=== PATIENT | male | born 1935 | race Caucasian/White ===

== ENCOUNTER 2019-07-22 10:55 | Inpatient (IN) | payer MEDICARE ==
[2019-07-22] VITALS (12 sets, daily range): BP systolic 96–137
[~2019-07-22] VITALS: Ht 185.4 cm; Wt 126.6 kg
--- NOTE | 2019-07-22 10:55 | NUR ---
BROUGHT IN BY [facility], PLACED IN BED #1 AND TRIAGED. REPORT GIVEN TO MANDY.
--- NOTE | 2019-07-22 11:00 | NUR ---
Pt bib LACF from home c/o generalized weakness. Pt h/o Afib, CHF,HTN
--- NOTE | 2019-07-22 11:02 | NUR ---
Random blood glucose checked, 86 mg/dL. Notified .
--- NOTE | 2019-07-22 11:15 | NUR ---
Pt has 20G LAC placed by [facility]. IVF infusing.
[2019-07-22 11:16] LABS: HEMATOCRIT 34.6 % (36-54); HEMOGLOBIN 11.1 g/dL (14.0-18.0); MEAN CORPUSCULAR HEMOGLOBIN 29 pg (27-31); MEAN CORPUSCULAR HGB CONC 32 % (32-36); MEAN CORPUSCULAR VOLUME 91 fL (79.0-98.0); PLATELET COUNT (AUTO) 135 K/uL (130-430); RED BLOOD CELL COUNT(AUTO) 3.81 MIL/uL (4.2-6.2)
[2019-07-22 11:26] LABS: BILIRUBIN,URINE NEGATIVE (NEGATIVE); BLOOD, URINE 2+ (NEGATIVE); CLARITY/URINE CLEAR (CLEAR); COLOR,URINE YELLOW (YELLOW); GLUCOSE,URINE NEGATIVE (NEGATIVE); KETONES,URINE NEGATIVE (NEGATIVE); LEUKOCYTE ESTERASE ,URINE 1+ (NEGATIVE); NITRITE, URINE POSITIVE (NEGATIVE); PROTEIN URINE 1+ (NEGATIVE); UROBILINOGEN,URINE 0.2 (0.2-1.0)
[2019-07-22 11:30] LABS: ALANINE AMINOTRANSFERASE 27 U/L (12-78); ANION GAP 14 (5-15); ASPARTATE AMINOTRANSFERASE 114 U/L (10-37); CALCIUM 8.4 mg/dL (8.4-11.0); CHLORIDE 105 mmol/L (98-107); CREATININE 3.02 mg/dL (0.55-1.30); GLUCOSE 95 mg/dL (70-99); SODIUM SERUM 139 mmol/L (136-145); TOTAL BILIRUBIN 0.5 mg/dL (0.0-1.0); UREA NITROGEN, BLOOD 73 mg/dL (8-21)
[2019-07-22 11:34] LABS: INR 3.7 (0.80-1.20); PROTHROMBIN TIME 36.8 SECS (9.5-12.5)
[2019-07-22 11:34] LABS: BACTERIA,URINE MODERATE /HPF (None Seen)
[2019-07-22 11:35] LABS: HYALINE CASTS, URINE 0-10 /LPF (None Seen)
[2019-07-22 11:35] LABS: POTASSIUM 5.8 mmol/L (3.5-5.1)
[2019-07-22] MEDS ORDERED: VANCOMYCIN HCL 1,000 MG in NS 250 ML IV ONE (11:45)
[2019-07-22] MEDS ORDERED: SODIUM POLYSTYRENE SULFONATE 15 GM/60 ML UDBTL PO ONE (11:45)
[2019-07-22] MEDS ORDERED: DEXTROSE 50% JECT 50 ML DISP.SYRIN IVP ONE (11:45)
[2019-07-22] MEDS ORDERED: PIPERACILLIN/TAZO 3.375 GM in NS 50 ML IV ONE (11:45)
[2019-07-22] MEDS ORDERED: AMIODARONE HCL 150 MG in D5W 97 ML IV ONE (11:45)
[2019-07-22] MEDS ORDERED: NACL 0.9% 2,000 ML IV ONE (11:45)
[2019-07-22] MEDS ORDERED: INSULIN REGULAR, HUMAN 10 UNITS/0.1 ML INJ IVP ONE (11:45)
[2019-07-22 11:48] LABS: BAND % (MANUAL) 26 % (0-6)
[2019-07-22 11:49] LABS: BASOPHILS % (MANUAL) 0 % (0-2); EOSINOPHILS % (MANUAL) 0 % (0-7); LYMPHOCYTES % (MANUAL) 1 % (20-46); METAMYELOCYTES % 1 % (0-0); MONOCYTES % (MANUAL) 2 % (0-11)
--- NOTE | 2019-07-22 12:00 | NUR ---
Pt tolerated straight cath approx 120cc urine sent to lab.
[2019-07-22] MEDS ORDERED: AMIODARONE HCL 150 MG/3ML VIAL ONE (12:31)
[2019-07-22] MEDS ORDERED: PIPERACILLIN/TAZOBACTAM 3.375 GM/VIAL (ZOSYN) IV ONE (12:32)
[2019-07-22] MEDS ORDERED: VANCOMYCIN HCL 1000 MG/VIAL IV ONE (12:42)
[2019-07-22] MEDS ORDERED: NACL 0.9% 1,000 ML IV ONE (13:00)
--- NOTE | 2019-07-22 13:15 | NUR ---
Pt tolerated medication for hyperkalemia.
[2019-07-22] MEDS ORDERED: NACL 0.9% 1,000 ML IV SCH (13:29)
[2019-07-22] MEDS ORDERED: MAGNESIUM SULFATE 50 ML IV PRN (14:00)
[2019-07-22] MEDS ORDERED: LORazepam 2 MG/ML VIAL IVP PRN (14:00)
[2019-07-22] MEDS ORDERED: DOCUSATE SODIUM 100 MG CAPSULE PO PRN (14:00)
[2019-07-22] MEDS ORDERED: ACETAMINOPHEN 325 MG TABLET PO PRN (14:00)
[2019-07-22] MEDS ORDERED: ZOLPIDEM TARTRATE 5 MG TABLET PO PRN (14:00)
[2019-07-22] MEDS ORDERED: MUPIROCIN 2% TOPICAL OINTMENT 22 GM NS PRN (14:00)
[2019-07-22] MEDS ORDERED: ONDANSETRON HCL 4 MG/2 ML VIAL IVP PRN (14:00)
[2019-07-22] MEDS ORDERED: MORPHINE 2 MG/ML INJ. SYRINGE IVP PRN (14:00)
--- NOTE | 2019-07-22 14:00 | NUR ---
Patient will be admitted to care of Dr. Bob. Admitted to ICU unit. Will go to room 6. Summary report printed. Report will be given at bedside.
--- NOTE | 2019-07-22 14:10 | NUR ---
RN NOTES: ADMISSION PATIENT CAME IN FROM ER VIA GURNEY, AWAKE AND ALERT, NOT IN ACUTE DISTRESS. A. FIB. ON THE MANUFACTURING HELPER, INITIAL VITAL SIGNS CHECKED AND RECORDED. IVF: NORMAL SALINE INFUSING WIDE OPEN VIA RIGHT AC IV LOCK. PATIENT MADE COMFORTABLE. WILL CONTINUE TO MONITOR. REPORT GIVEN TO ANTON FITZPATRICK ([id number])
--- NOTE | 2019-07-22 14:20 | NUR ---
OPENING NOTE: RECEIVED REPORT FROM FILIBERTO WALTON. PATIENT IS LAYING IN BED, VERBALLY RESPONSIVE WITH CLEAR SPEECH, ABLE TO OPEN EYES SPONTANEOUSLY. PATIENT IS ON ROOM AIR AND SATURATING WNL. NO ACUTE SIGNS OF RESP DISTRESS, NO SOB. BREATHING EVEN AND UNLABORED. IV SITE INTACT AND PATENT, NO REDNESS/SWELLING TO SITE. ORIENTED PATIENT TO ROOM, BED AN CALL LIGHT. SAFETY PRECAUTIONS IMPLEMENTED. CONTINUE TO MONITOR.
[2019-07-22] MEDS ORDERED: VANCOMYCIN HCL 2,000 MG in NS 500 ML IV ONE (15:00)
[2019-07-22] MEDS: SODIUM BICARBONATE 8.4% JECT 100 MEQ in 0.45% NACL 1,000 ML IV SCH (15:15)
--- NOTE | 2019-07-22 15:41 | NUR ---
Consult called to Dr. Marie. Spoke with Ely
--- NOTE | 2019-07-22 15:44 | NUR ---
Consult called to Dr. Wen. spoke with Linda.
--- NOTE | 2019-07-22 17:00 | NUR ---
PICC LINE INSERTED: PICC LINE INSERTED BY PICC LINE NURSE. PATIENT TOLERATED WELL. XRAY CONFIRMED, OKAY TO USE PICC LINE PER MD ORDERS.
[2019-07-22] MEDS: PIPERACILLIN/TAZO 2.25G/DEX-IS 50 ML IV SCH (18:39)
[2019-07-22 19:03] LABS: ANION GAP 11 (5-15); CHLORIDE 114 mmol/L (98-107); CREATININE 1.97 mg/dL (0.55-1.30); GLUCOSE 80 mg/dL (70-99); POTASSIUM 3.6 mmol/L (3.5-5.1); SODIUM SERUM 145 mmol/L (136-145); UREA NITROGEN, BLOOD 60 mg/dL (8-21)
--- NOTE | 2019-07-22 19:10 | NUR ---
ENDORSED: ENDORSED PLAN OF CARE TO NOC RN. ALL QUESTIONS ANSWERED.
[2019-07-22 19:14] LABS: CALCIUM 6.6 mg/dL (8.4-11.0)
--- NOTE | 2019-07-22 19:45 | NUR ---
Opening Note Pt in bed AAO. A-fib on the monitor, controlled. Pt is on RA. No s/s of distress noted. Pt VSS. YENNY PICC Line and RAC 20g in place. IV sites C/D/I. Bicarb and IV ABx running. No s/s of infiltration noted. Pt has andrews catheter in and flexiseal in place. Erythema and discoloration noted bilaterally to lower legs. Q2H skin turns in place. Bed locked in lowest position, safety precautions in place, and call light in reach, Will continue to monitor.
[2019-07-22] MEDS: CALCIUM CARBONATE 500 MG/ TAB.CHEW PO SCH (21:33)
[2019-07-22 22:24] LABS: BARBITURATE, URINE NEGATIVE (NEG <=200); BENZODIAZEPINE, URINE NEGATIVE (NEG <=150); CANNABINOID, URINE NEGATIVE (NEG <=50); COCAINE, URINE NEGATIVE (NEG <=150); METHAMPHETAMINES SCREEN,URINE NEGATIVE (NEG <=500); OPIATE, URINE POSITIVE (NEG <=100); PHENCYCLIDINE SCREEN,URINE NEGATIVE (NEG <=25); UR TRICYCLIC ANTIDEPRESSANTS NEGATIVE (NEG <=300); URINE AMPHETAMINE NEGATIVE (NEG <=500); URINE METHADONE NEGATIVE (NEG <=200); URINE OXYCODONE SCREEN NEGATIVE (NEG <=100); URINE PROPOXYPHENE SCREEN NEGATIVE (NEG <=300)
--- NOTE | 2019-07-22 22:25 | NUR ---
MD NI Called Dr. Campbell's exchange for critical lab results [phone] Spoke to Kelly
--- NOTE | 2019-07-22 22:35 | NUR ---
Called Spoke w/ Dr. Campbell regarding Pt blood culture results. Orders received. Will carry out as ordered.
[2019-07-23] VITALS (24 sets, daily range): BP systolic 101–131
[2019-07-23] MEDS: PIPERACILLIN/TAZO 2.25G/DEX-IS 50 ML IV SCH ×5 (00:13→23:58)
--- NOTE | 2019-07-23 00:52 | NUR ---
RN Rounds Pt in bed asleep. No s/s of distress noted. VSS. Will continue to monitor.
--- NOTE | 2019-07-23 02:00 | NUR ---
Pt HR went uncontrolled a-fib with HR in the 100s around 0130. PVCs now noted. Pt denies any pain or discomfort, remains asymptomatic. Will continue to monitor.
--- NOTE | 2019-07-23 04:15 | NUR ---
RN Rounds Pt in bed asleep. No s/s of distress noted. Pt still remains uncontrolled A-fib with HR in the 100-110s w/ PVCs noted. Pt is asymptomatic, and denies any pain or discomfort. Will continue to monitor.
[2019-07-23 05:52] LABS: HEMATOCRIT 26.9 % (36-54); LYMPHOCYTES # (AUTO) 0.5 K/uL (1.0-5.5); LYMPHOCYTES % (AUTO) 3.3 % (20.5-51.5); MEAN CORPUSCULAR HEMOGLOBIN 30 pg (27-31); MEAN CORPUSCULAR HGB CONC 33 % (32-36); MEAN CORPUSCULAR VOLUME 88 fL (79.0-98.0); MONOCYTES # (AUTO) 0.7 K/uL (0.0-1.0); MONOCYTES % (AUTO) 4.5 % (1.7-9.3); NEUTROPHILS # (AUTO) 13.3 K/uL (1.8-7.7); NEUTROPHILS % (AUTO) 92.2 % (40.0-70.0); PLATELET COUNT (AUTO) 92 K/uL (130-430); RED BLOOD CELL COUNT(AUTO) 3.04 MIL/uL (4.2-6.2); RED CELL DISTRIBUTION WIDTH 15.6 % (9.0-15.0); WHITE BLOOD COUNT (AUTO) 14.4 K/uL (4.8-10.8)
[2019-07-23 06:02] LABS: ANION GAP 6 (5-15); CHLORIDE 109 mmol/L (98-107); CREATININE 1.82 mg/dL (0.55-1.30); GLUCOSE 78 mg/dL (70-99); POTASSIUM 3.1 mmol/L (3.5-5.1); PROTHROMBIN TIME 49.1 SECS (9.5-12.5); SODIUM SERUM 144 mmol/L (136-145); UREA NITROGEN, BLOOD 61 mg/dL (8-21)
--- NOTE | 2019-07-23 06:12 | NUR ---
Closing Note Pt in bed, asleep. No s/s of distress noted. Pt remains a-fib on the monitor, with PVCs noted. Pt is asymptomatic, no s/s of distress, Pt denies any pain. Pt on RA, even and unlabored breathing noted. Pt has YENNY PICC line running IVF. No s/s of infiltration noted. Pt has andrews catheter in place, draining urine to gravity. Flexiseal in place, no leakage noted. Bed locked in lowest position, call light in reach, and safety precautions in place. Will endorse to oncoming shift.
[2019-07-23] MEDS: SODIUM BICARBONATE 8.4% JECT 100 MEQ in 0.45% NACL 1,000 ML IV SCH (06:22)
[2019-07-23 06:46] LABS: VANCOMYCIN,RANDOM 7.3 ug/mL
[2019-07-23] MEDS ORDERED: CALCIUM CHLORIDE 1 GM in NS 100 ML IV ONE (07:00)
[2019-07-23] MEDS ORDERED: PHYTONADIONE Non-Formulary 5 MG TABLET PO ONE (07:00)
--- NOTE | 2019-07-23 07:10 | NUR ---
Endorsement Report given to oncoming RN at bedside via SBAR approach.
--- NOTE | 2019-07-23 07:10 | NUR ---
Endorsement Received shift report from night RN using SBAR
[2019-07-23] MEDS ORDERED: PHYTONADIONE (Vitamin K) Oral Solution PO ONE (07:30)
--- NOTE | 2019-07-23 08:00 | NUR ---
AM assessment Pt tachy at 102 HR, 19 RR, O2 96%, 109/43. Pt is complaining of lower leg pain. PT is NPO pending CT scan with contrast. Bed lock and in lowest position with call light in reach and personal cell phone.
--- NOTE | 2019-07-23 08:30 | NUR ---
Radiology ultrasound is being performed on PT.
[2019-07-23] MEDS ORDERED: DIATR MEGLU/DIATRIZ SOD 30 ML SOLUTION PO ONE (09:00)
[2019-07-23] MEDS: CALCIUM CARBONATE 500 MG/ TAB.CHEW PO SCH ×4 (09:01→20:29)
--- NOTE | 2019-07-23 09:15 | NUR ---
Obtained consent for CT with contrast. Kristie from radiology informed consent is not needed. Administering oral CT contrast.
--- NOTE | 2019-07-23 09:39 | NUR ---
Nutrition Update Glenn Scale 13 noted. Pt admitted for arrhythmia, irregular heart beats, sepsis Diet: Regular BMI: 36.9 kg/m2 RD to follow per nutrition care standards.
[2019-07-23] MEDS: EMOLLIENT COMBINATION NO.73 78 GM CREAM..G. TP SCH ×2 (10:01→20:29)
[2019-07-23] MEDS: MORPHINE 2 MG/ML INJ. SYRINGE IVP PRN ×2 (10:19→23:02)
--- NOTE | 2019-07-23 10:20 | NUR ---
Pt complaining of lower leg pain. 6 out of 10. Administered 1 mg of Morphine IVP.
--- NOTE | 2019-07-23 11:15 | NUR ---
Pain assessment 1 out of 10. Pt resting comfortably with lights turned off.
[2019-07-23] MEDS: VANCOMYCIN HCL 1,500 MG in NS 250 ML IV SCH (11:47)
--- NOTE | 2019-07-23 13:45 | NUR ---
Pt family at bedside
--- NOTE | 2019-07-23 14:24 | NUR ---
Dietitian Recommendations 1. Recommend change to Cardiac, Renal diet Please see Nutrition Assessment for further details. LT, RD
--- NOTE | 2019-07-23 17:25 | NUR ---
Dr Steen called for home medication reconciliation list. Called PT son Arturo and he said he will bring it in tonight or tomorrow.
--- NOTE | 2019-07-23 19:10 | NUR ---
Shift Endorsement Hand off report given to night RN using SBAR.
--- NOTE | 2019-07-23 19:15 | NUR ---
Closing notes Pt on room air, finished dinner. Pt displaying Afib. Pt does not express signs of distress or pain. Bed locked in lowest position with room light on. Call light in reach with Pt cellphone in hand.
--- NOTE | 2019-07-23 19:35 | NUR ---
Opening Note Pt in bed AAO. A-fib on the monitor, controlled. Pt is on RA. No s/s of distress noted. Pt VSS. YENNY PICC Line and RAC 20g in place. IV sites C/D/I. No s/s of infiltration noted. Pt has andrews catheter in and flexiseal in place. Erythema and discoloration noted bilaterally to lower legs. Q2H skin turns in place. Bed locked in lowest position, safety precautions in place, and call light in reach, Will continue to monitor.
[2019-07-23] MEDS ORDERED: amLODIPine BESYLATE 5 MG TABLET PO ONE (21:15)
[2019-07-23] MEDS ORDERED: LIP40 PO (22:22)
[2019-07-23] MEDS ORDERED: HYT1 PO (22:22)
[2019-07-23] MEDS ORDERED: XALEYE LEFT EYE (22:22)
[2019-07-23] MEDS ORDERED: DORZ10DR10 LEFT EYE (22:22)
[2019-07-23] MEDS ORDERED: FURO-149 PO (22:22)
[2019-07-23] MEDS ORDERED: WARF2.5T2 PO (22:22)
[2019-07-23] MEDS ORDERED: LISI-600 PO (22:22)
[2019-07-23] MEDS ORDERED: NOR10 PO (22:22)
[2019-07-23] MEDS ORDERED: HYDR-3607 PO (22:22)
[2019-07-23] MEDS ORDERED: COR6.25 PO (22:22)
[2019-07-23] MEDS ORDERED: BRI.2% LEFT EYE (22:22)
[2019-07-24] VITALS (24 sets, daily range): BP systolic 85–142
--- NOTE | 2019-07-24 00:35 | NUR ---
RN Rounds Pt in bed asleep. No s/s of distress noted. VSS. Will continue to monitor.
--- NOTE | 2019-07-24 03:15 | NUR ---
RN Rounds Pt in bed asleep. No s/s of distress noted. Pt remains in A-fib, w/ occasional PVCs noted. Pt denies any chest pain, SOB, or discomfort. Will continue to monitor.
[2019-07-24] MEDS: PIPERACILLIN/TAZO 2.25G/DEX-IS 50 ML IV SCH ×4 (05:25→23:00)
[2019-07-24 05:51] LABS: BASOPHILS % (AUTO) 0.1 % (0.0-2.0); EOSINOPHILS % (AUTO) 0.3 % (0.0-4.0); HEMATOCRIT 27.9 % (36-54); HEMOGLOBIN 9.2 g/dL (14.0-18.0); LYMPHOCYTES # (AUTO) 0.6 K/uL (1.0-5.5); LYMPHOCYTES % (AUTO) 4.3 % (20.5-51.5); MEAN CORPUSCULAR HEMOGLOBIN 29 pg (27-31); MEAN CORPUSCULAR HGB CONC 33 % (32-36); MEAN CORPUSCULAR VOLUME 89 fL (79.0-98.0); MONOCYTES # (AUTO) 0.6 K/uL (0.0-1.0); MONOCYTES % (AUTO) 4.3 % (1.7-9.3); NEUTROPHILS # (AUTO) 11.9 K/uL (1.8-7.7); PLATELET COUNT (AUTO) 89 K/uL (130-430); RED BLOOD CELL COUNT(AUTO) 3.14 MIL/uL (4.2-6.2); RED CELL DISTRIBUTION WIDTH 15.4 % (9.0-15.0); WHITE BLOOD COUNT (AUTO) 13.1 K/uL (4.8-10.8)
--- NOTE | 2019-07-24 06:00 | NUR ---
RN Round Pt in bed AAO. Pt linens changed and rectal tube reinserted. Pt tolerated well. No s/s of distress. Will continue to monitor.
[2019-07-24 06:31] LABS: INR 1.5 (0.80-1.20); PROTHROMBIN TIME 15.2 SECS (9.5-12.5)
--- NOTE | 2019-07-24 06:46 | NUR ---
Closing Note Pt in bed asleep. AAO. A-fib on the monitor w/ PVCs. Pt remains asymptomatic. On RA, no s/s of distress noted. Breath sounds even and unlabored. YENNY PICC line in place, no s/s of infiltration noted. Pt rectal tube in place draining stool to gravity. Mcmullen catheter draining urine to gravity. Pt turned Q2H. Bed locked in lowest position, call light in reach, and safety precautions in place. Will endorse to oncoming RN.
[2019-07-24 07:04] LABS: ANION GAP 11 (5-15); CALCIUM 8.3 mg/dL (8.4-11.0); CHLORIDE 108 mmol/L (98-107); CREATININE 1.55 mg/dL (0.55-1.30); GLUCOSE 98 mg/dL (70-99); POTASSIUM 3.2 mmol/L (3.5-5.1); SODIUM SERUM 142 mmol/L (136-145); UREA NITROGEN, BLOOD 48 mg/dL (8-21)
--- NOTE | 2019-07-24 07:06 | NUR ---
Endorsement Report given to oncoming RN at bedside via SBAR approach.
--- NOTE | 2019-07-24 07:10 | NUR ---
Received patient and report from [facility] shift nurse. In no acute distress.
--- NOTE | 2019-07-24 08:00 | NUR ---
Offered patient CHG wipe down with education of benefits x3, patient refused.
[2019-07-24] MEDS: CALCIUM CARBONATE 500 MG/ TAB.CHEW PO SCH ×4 (08:30→17:01)
[2019-07-24] MEDS: TERBINAFINE HCL 1%, 24 GM antifungal CREAM TP SCH ×2 (08:42→20:01)
[2019-07-24] MEDS: POTASSIUM CHLORIDE 20 MEQ TAB.PRT.SR PO PRN (08:43)
[2019-07-24] MEDS: EMOLLIENT COMBINATION NO.73 78 GM CREAM..G. TP SCH ×2 (08:43→20:01)
[2019-07-24] MEDS: VANCOMYCIN HCL 1,500 MG in NS 250 ML IV SCH (10:25)
--- NOTE | 2019-07-24 10:43 | NUR ---
Offered patient CHG wipe down with education of benefits x3, patient refused.
--- NOTE | 2019-07-24 11:11 | NUR ---
MD Steen at bedside, new order protonix 40 mg IV daily. Orders placed.
[2019-07-24] MEDS ORDERED: PANTOPRAZOLE SODIUM 40 MG/VIAL (PROTONIX) IVP ONE (11:15)
[2019-07-24] MEDS ORDERED: ATORVASTATIN 20 MG TABLET PO ONE (11:30)
[2019-07-24] MEDS ORDERED: amLODIPine BESYLATE 10 MG TABLET PO ONE (11:30)
--- NOTE | 2019-07-24 11:57 | NUR ---
New consult paged to Dr. Piña. Spoke with ronna Morris.
[2019-07-24 12:08] LABS: HEPATITIS A AB, IgM Negative (Negative); HEPATITIS B CORE AB, IgM Negative (Negative); HEPATITIS B SURFACE AG Negative (Negative)
[2019-07-24] MEDS ORDERED: CARVEDILOL 6.25 MG TABLET (COREG) PO ONE (12:30)
[2019-07-24] MEDS ORDERED: amLODIPine BESYLATE 5 MG TABLET PO SCH (13:00)
--- NOTE | 2019-07-24 13:30 | NUR ---
Patient complaining of nausea. Called MD Steen, informed zofran IVP was given but patient still reports nausea, new order of reglan 10 mg IVP TID as needed for nausea and vomiting. Orders placed.
[2019-07-24] MEDS ORDERED: METOCLOPRAMIDE HCL 10 MG/2 ML VIAL IVP PRN (13:45)
--- NOTE | 2019-07-24 14:05 | NUR ---
During CHG bath while patient was laying down, patient 02 went down to 85. Placed patient head back up, also placed on 02 via nasal cannula 2 liters, patient 02 went up to 90. Placed patient to 3 liters, 02 went up to 95. Patient stated I feel a lot better. Patient blood pressure went down to 88/36, placed patient in [place] then rechecked b/p at 75/39. MD Swanson paged and informed change of events, ordered 500 ml of normal saline bolus and to call back if systolic doesn't go over 95 and will assess patient later today.
[2019-07-24] MEDS ORDERED: NS 500 ML IV ONE (14:30)
--- NOTE | 2019-07-24 16:07 | NUR ---
Page out to Dr. Swanson, spoke with exchange.
[2019-07-24] MEDS ORDERED: NOREPINEPHRINE BITARTRATE 4 MG in NS 246 ML IV PRN (16:15)
[2019-07-24] MEDS ORDERED: WARFARIN SODIUM 1 MG TABLET PO SCH (18:00)
--- NOTE | 2019-07-24 18:24 | NUR ---
MD Swanson at bedside, ordered to discontinue norvasc, hytrin, and coreg. Orders carried out.
--- NOTE | 2019-07-24 19:12 | NUR ---
Endorsed patient and gave report to NOC shift nurse. Patient in no acute distress.
--- NOTE | 2019-07-24 19:36 | NUR ---
Opening Note Pt in bed AAO. A-fib on the monitor, controlled, HR in the 80s. Pt is on 2L NC. No s/s of distress noted. Pt IV sites C/D/I. No s/s of infiltration noted. Pt has flexiseal and and andrews catheter in place. No leakage noted, draining to gravity. Edema noted to lower extremities. Bed locked in lowest position, call light in reach and safety precautions in place. Will continue to monitor.
[2019-07-24] MEDS: LATANOPROST 2.5 ML DROPS (XALATAN) OP SCH (20:01)
--- NOTE | 2019-07-24 20:46 | NUR ---
Dr. Piña at bedside examining Pt.
[2019-07-24] MEDS ORDERED: TERAZOSIN HCL 5 MG CAPSULE (HYTRIN) PO SCH (21:00)
[2019-07-24] MEDS ORDERED: CARVEDILOL 6.25 MG TABLET (COREG) PO SCH (21:00)
--- NOTE | 2019-07-24 23:05 | NUR ---
called Spoke w/ Dr. Swanson regarding Pt's elevated Trop. No new orders received. Will continue to monitor Pt.
[2019-07-25] VITALS (21 sets, daily range): BP systolic 94–136
[2019-07-25] MEDS: MORPHINE 2 MG/ML INJ. SYRINGE IVP PRN ×2 (01:15→21:00)
--- NOTE | 2019-07-25 01:29 | NUR ---
RN Rounds Pt in bed resting. AAO. No s/s of distress noted. PRN pain medication given for c/o of foot pain. VSS. Will continue to monitor.
--- NOTE | 2019-07-25 04:22 | NUR ---
RN rounds Pt in bed asleep. No s/s of distress noted. Pt remains on 2L NC. VSS. Will continue to monitor.
[2019-07-25] MEDS: PIPERACILLIN/TAZO 2.25G/DEX-IS 50 ML IV SCH (05:24)
--- NOTE | 2019-07-25 06:24 | NUR ---
Closing Note Pt in bed asleep. AAO. A-fib on the monitor w/ PVCs. Pt remains asymptomatic. On 3L NC no s/s of distress noted. Breath sounds even and unlabored. YENNY PICC line in place, no s/s of infiltration noted. Pt rectal tube in place draining stool to gravity. Mcmullen catheter draining urine to gravity. Pt turned Q2H. Bed locked in lowest position, call light in reach, and safety precautions in place. Will endorse to oncoming RN.
[2019-07-25 06:55] LABS: INR 1.4 (0.80-1.20); PROTHROMBIN TIME 13.8 SECS (9.5-12.5)
[2019-07-25 07:03] LABS: ALANINE AMINOTRANSFERASE 39 U/L (12-78); ALBUMIN 1.8 g/dL (3.4-4.8); ANION GAP 6 (5-15); ASPARTATE AMINOTRANSFERASE 73 U/L (10-37); BILIRUBIN,DIRECT 0.2 mg/dL (0.0-0.3); CALCIUM 7.8 mg/dL (8.4-11.0); CHLORIDE 108 mmol/L (98-107); CREATININE 1.67 mg/dL (0.55-1.30); GLUCOSE 98 mg/dL (70-99); POTASSIUM 3.4 mmol/L (3.5-5.1); SODIUM SERUM 140 mmol/L (136-145); TOTAL BILIRUBIN 0.5 mg/dL (0.0-1.0); UREA NITROGEN, BLOOD 42 mg/dL (8-21)
--- NOTE | 2019-07-25 07:13 | NUR ---
Endorsement Report given to oncoming RN at bedside via SBAR approach.
--- NOTE | 2019-07-25 07:15 | NUR ---
OPENING NOTE: SBAR report and plan of care received from [facility] ANTON Mackenzie
--- NOTE | 2019-07-25 07:59 | NUR ---
Dr Marie at bedside. made aware of critical elevated troponin level called in by lab this morning
[2019-07-25] MEDS: CARVEDILOL 3.125 MG TABLET (COREG) PO SCH ×2 (08:14→20:42)
[2019-07-25] MEDS: PANTOPRAZOLE SODIUM 40 MG/VIAL (PROTONIX) IVP SCH (08:15)
[2019-07-25] MEDS: ATORVASTATIN 20 MG TABLET PO SCH (08:15)
[2019-07-25] MEDS: EMOLLIENT COMBINATION NO.73 78 GM CREAM..G. TP SCH ×2 (08:16→20:51)
[2019-07-25] MEDS: TERBINAFINE HCL 1%, 24 GM antifungal CREAM TP SCH ×2 (08:16→20:41)
[2019-07-25 08:52] LABS: BASOPHILS % (AUTO) 0.3 % (0.0-2.0); EOSINOPHILS # (AUTO) 0.1 K/uL (0.0-0.4); HEMATOCRIT 27.8 % (36-54); HEMOGLOBIN 9.3 g/dL (14.0-18.0); LYMPHOCYTES # (AUTO) 0.6 K/uL (1.0-5.5); LYMPHOCYTES % (AUTO) 5.9 % (20.5-51.5); MEAN CORPUSCULAR HEMOGLOBIN 30 pg (27-31); MEAN CORPUSCULAR HGB CONC 33 % (32-36); MEAN CORPUSCULAR VOLUME 89 fL (79.0-98.0); MONOCYTES # (AUTO) 0.5 K/uL (0.0-1.0); MONOCYTES % (AUTO) 4.4 % (1.7-9.3); NEUTROPHILS # (AUTO) 9.3 K/uL (1.8-7.7); NEUTROPHILS % (AUTO) 88.4 % (40.0-70.0); PLATELET COUNT (AUTO) 88 K/uL (130-430); RED BLOOD CELL COUNT(AUTO) 3.11 MIL/uL (4.2-6.2); RED CELL DISTRIBUTION WIDTH 15.8 % (9.0-15.0); WHITE BLOOD COUNT (AUTO) 10.5 K/uL (4.8-10.8)
[2019-07-25] MEDS ORDERED: amLODIPine BESYLATE 10 MG TABLET PO SCH (09:00)
--- NOTE | 2019-07-25 09:00 | NUR ---
IV LASIX: Will delay IV Lasix administration due to low blood pressure
[2019-07-25] MEDS: VANCOMYCIN HCL 1,500 MG in NS 250 ML IV SCH (11:31)
--- NOTE | 2019-07-25 12:23 | NUR ---
DC Planning: Informed Jean/Joyce dept at [facility] that the pt is stable for transfer. CM faxed the order to fax # [phone] attn: assigned CM. The pt will need Tele bed, no isolation. Per Jean, the assigned CM will call later, she is on another phone line.
[2019-07-25] MEDS: POTASSIUM CHLORIDE 20 MEQ TAB.PRT.SR PO PRN (13:18)
[2019-07-25] MEDS ORDERED: LevALBUTEROL HCL 1.25 MG/0.5 ML *CONC.* VIAL.NEB (XOPENEX CONC.) INH PRN (13:45)
[2019-07-25] MEDS ORDERED: IPRATROPIUM BROM 0.5 MG/2.5 ML VIAL.NEB (ATROVENT) INH PRN (13:45)
--- NOTE | 2019-07-25 16:20 | NUR ---
FLEXISEAL DISLODGED. REINSERTED WITH ASSISTANCE OF TREATING AND PUMPING SUPERVISOR TRACY. PT TOLERATED PROCEDURE. FLEXISEAL FLOWING WELL.
--- NOTE | 2019-07-25 16:30 | NUR ---
CHG CHG BATH GIVEN. GOWN AND LINEN CHANGED. PATIENT TOLERATED WELL.
[2019-07-25] MEDS: FUROSEMIDE 20 MG/2 ML VIAL IVP SCH (16:58)
[2019-07-25] MEDS: WARFARIN SODIUM 2 MG TABLET PO SCH (17:50)
--- NOTE | 2019-07-25 18:58 | NUR ---
TRANSFER: Patient transferred to [facility] via ICU bed and continuous monitoring. Patient vital signs WNL, stable for transfer. Patient placed in Telemetry bed 107B and connected to continuous monitoring. SBAR report given and plan of care endorsed to [facility] ANTON Hall.
--- NOTE | 2019-07-25 19:35 | NUR ---
INITIAL NOTES Received SBAR from ANTON TATUM. Patient is resting with family at bedside. Patient shows no signs of acute respiratory distress, 3L NC. Mcmullen catheter draining per gravity, in place, no kinks or loops noted, not touching the floor. Flexiseal in place. YENNY PICC patent, dressings c/d/i. Call light within reach, bed alarm on, and bed at lowest position. Will continue to monitor.
[2019-07-25] MEDS: BRIMONIDINE TARTRATE 0.2% 5 mL EYE DROPS OP SCH (20:40)
[2019-07-25] MEDS: LATANOPROST 2.5 ML DROPS (XALATAN) OP SCH (20:41)
--- NOTE | 2019-07-25 22:24 | NUR ---
Patient is provided with straw and another blanket. Patient states that he is comfortable. Safety precautions in place. Will continue to monitor.
[2019-07-26 00:16] VITALS: BP_SYST 116
--- NOTE | 2019-07-26 00:55 | NUR ---
Patient is provided PRN AMBIEN, with patient education on purposes and side effects. Patient verbalizes understanding. Patient is resting, no signs of acute respiratory distress. Will continue to monitor.
--- NOTE | 2019-07-26 02:16 | NUR ---
Patient is resting, no signs of acute respiratory distress observed. Will continue to monitor.
--- NOTE | 2019-07-26 04:38 | NUR ---
Patient is resting, no signs of acute respiratory distress or pain observed. Safety precautions in place. Will continue to monitor.
--- NOTE | 2019-07-26 06:47 | NUR ---
CLOSING NOTES Patient is resting. Patient shows no signs of acute respiratory distress, 3L NC. Mcmullen catheter draining per gravity, in place, no kinks or loops noted, not touching the floor. Flexiseal in place. YENNY PICC patent, dressings c/d/i. Call light within reach, bed alarm on, and bed at lowest position. All needs met throughout shift, will endorse care to oncoming shift.
[2019-07-26 07:17] LABS: BASOPHILS % (AUTO) 0.3 % (0.0-2.0); EOSINOPHILS # (AUTO) 0.2 K/uL (0.0-0.4); EOSINOPHILS % (AUTO) 1.8 % (0.0-4.0); HEMATOCRIT 27.1 % (36-54); HEMOGLOBIN 9.2 g/dL (14.0-18.0); LYMPHOCYTES # (AUTO) 0.7 K/uL (1.0-5.5); LYMPHOCYTES % (AUTO) 7.8 % (20.5-51.5); MEAN CORPUSCULAR HEMOGLOBIN 30 pg (27-31); MEAN CORPUSCULAR HGB CONC 34 % (32-36); MEAN CORPUSCULAR VOLUME 88 fL (79.0-98.0); MONOCYTES # (AUTO) 0.8 K/uL (0.0-1.0); MONOCYTES % (AUTO) 8.8 % (1.7-9.3); NEUTROPHILS # (AUTO) 7.3 K/uL (1.8-7.7); NEUTROPHILS % (AUTO) 81.3 % (40.0-70.0); PLATELET COUNT (AUTO) 91 K/uL (130-430); RED BLOOD CELL COUNT(AUTO) 3.07 MIL/uL (4.2-6.2); RED CELL DISTRIBUTION WIDTH 15.3 % (9.0-15.0)
[2019-07-26 07:20] LABS: INR 1.5 (0.80-1.20); PROTHROMBIN TIME 14.6 SECS (9.5-12.5)
[2019-07-26 07:25] VITALS: BP_SYST 140
[2019-07-26 07:34] LABS: ALANINE AMINOTRANSFERASE 38 U/L (12-78); ALBUMIN 1.9 g/dL (3.4-4.8); ANION GAP 7 (5-15); ASPARTATE AMINOTRANSFERASE 51 U/L (10-37); CHLORIDE 108 mmol/L (98-107); CREATININE 1.48 mg/dL (0.55-1.30); GLUCOSE 92 mg/dL (70-99); POTASSIUM 3.5 mmol/L (3.5-5.1); SODIUM SERUM 140 mmol/L (136-145); TOTAL BILIRUBIN 0.3 mg/dL (0.0-1.0); UREA NITROGEN, BLOOD 37 mg/dL (8-21)
--- NOTE | 2019-07-26 08:00 | NUR ---
am rounds: alert and oreinted x4. no shortness of breathing noted. Bilateral lower extremities elevated with pillows. Call light within reach
[2019-07-26] MEDS: BRIMONIDINE TARTRATE 0.2% 5 mL EYE DROPS OP SCH (08:28)
[2019-07-26] MEDS: CARVEDILOL 3.125 MG TABLET (COREG) PO SCH (08:29)
[2019-07-26] MEDS: ATORVASTATIN 20 MG TABLET PO SCH (08:29)
[2019-07-26] MEDS: EMOLLIENT COMBINATION NO.73 78 GM CREAM..G. TP SCH (08:30)
[2019-07-26] MEDS: TERBINAFINE HCL 1%, 24 GM antifungal CREAM TP SCH (08:31)
[2019-07-26] MEDS: PANTOPRAZOLE SODIUM 40 MG/VIAL (PROTONIX) IVP SCH (08:51)
[2019-07-26] MEDS: FUROSEMIDE 20 MG/2 ML VIAL IVP SCH (08:52)
--- NOTE | 2019-07-26 10:00 | NUR ---
DC Planning: updated pt 's condition to [facility] # [phone], and faxed update info to [facility] respite care provider # [phone]. Discussed with Barbara for the pending transfer pt to [facility]. Barbara planned to send pt to the [place] location concerning the elevated troponin level . She will consult with the medical doctor for the transfer to [facility] if cardiac treatment is needed otherwise will transfer pt to [facility] per pt request. -- dc package delivered to [facility] unit and ANTON Fowler made aware. The pt was notified of the plan as well.
--- NOTE | 2019-07-26 11:30 | NUR ---
Rounds: Patient is calm. Denies any discomfort.
[2019-07-26] MEDS: VANCOMYCIN HCL 1,500 MG in NS 250 ML IV SCH (12:14)
[2019-07-26 12:36] VITALS: BP_SYST 112
[2019-07-26 13:38] VITALS: BP_SYST 112; BP_SYST 124
[2019-07-26] MEDS ORDERED: TERA5CAP4 PO (13:56)
[2019-07-26] MEDS ORDERED: HYDR-4272 PO (13:56)
[2019-07-26] MEDS ORDERED: ATOR20TA64 PO (13:56)
--- NOTE | 2019-07-26 14:30 | NUR ---
Rounds: Patient is made aware of plans to transfer him to [facility] and he is agreeable.
--- NOTE | 2019-07-26 15:24 | NUR ---
Nutrition F/U RD reviewed pt's current EMR record including diet Hx, physician notes, nursing notes, pertinent labs/meds/procedures, care trends, and care activity. Admitting Dx: Arrhythmia, irregular heart beats, sepsis PMH: atr fibr, anemia, malnutrition, acute on chronic heart failure, CHF, CAD, s/p CABG per physician's notes Current Diet Order: Regular x4 days Subjective Info: Pt seen resting in bed, visually obese for ht, c/w anthropometrics. Pt reported t hat his appetite has been low as most foods have "tasted flat." Pt was open to trying Ensure Enlive ONS -- interested in strawberry flavor. RD encouraged pt to try to increase PO intakes for optimal nutrition. Plan for transfer to contracted hospital per EMR. Current % PO 21% average x7 meals -- consistently negligible/poor since admission Estimated Energy Expenditure (kcals/day) 2520-2940kcal (30-35kcal/day based on IBW for critical illness/sepsis) Estimated Protein Required (g/day) 109-151g/day (1.3-1.8g/kg based on IBW for critical illness/sepsis) Estimated Fluid Required (l/day) Deferred to MD due to hx of CHF Problem/Etiology/Signs/Symptoms Increased nutrient needs r/t increased metabolic demands aeb severe sepsis. *ongoing Altered nutrition related lab values r/t hx of chronic renal disease aeb by BUN: 61H, Cr: 1.83H. *improving -- BUN 37 H, CRE 1.48 H Expected Outcomes/Goals Monitor appetite and PO intake w/ goal of pt meeting at least 75% of estimated nutritional needs, labs trending WNL, normal GI function, skin integrity/wt maintenance. Dietitian Recommendations * Recommend regular diet w/ Ensure Enlive BID (ONS provides 700 kcal/day, 40 gm protein/day) * Encourage increase PO intakes Follow Up High Risk: F/U in 2-3 days
--- NOTE | 2019-07-26 15:31 | NUR ---
Dietitian Recommendations * Recommend regular diet w/ Ensure Enlive BID (ONS provides 700 kcal/day, 40 gm protein/day) * Encourage increase PO intakes LP, RD Please refer to Nutrition F/U for details.
[2019-07-26 17:20] VITALS: BP_SYST 124
--- NOTE | 2019-07-26 17:36 | NUR ---
[place] transfer: Received a call from Martha, patient will be transferred to [facility] since wojciech an will not accomodate patient due to trending troponin levels. Patient is aware, reluctant at first but agreed after speaking with Martha.
[2019-07-26] MEDS: WARFARIN SODIUM 2 MG TABLET PO SCH (17:41)
--- NOTE | 2019-07-26 18:25 | NUR ---
End of shift: Needs attended. No change in assessment.
[2019-07-26 18:46] VITALS: BP_SYST 124
--- NOTE | 2019-07-26 19:25 | NUR ---
OPENING NOTES Received SBAR from ANTON NAVARRO. Patient is resting with family at bedside. Patient shows no signs of acute respiratory distress, 3L O2 VIA NC. Mcmullen catheter draining per gravity, in place, no kinks or loops noted, not touching the floor. Flexiseal in place. YENNY PICC patent, dressings c/d/i. Call light within reach, bed alarm on, and bed at lowest position. Will continue to monitor.
--- NOTE | 2019-07-26 20:20 | NUR ---
REPORT GIVEN TO ZOLTAN AT [facility].
--- NOTE | 2019-07-26 20:25 | NUR ---
DISCHARGE PT TRANSFERRED VIA AMBULANCE TO [facility]. PT IN STABLE CONDITION. NAME BAND REMOVED. PERSONAL BELONGINGS ARE WITH PT.
== END 2019-07-26 20:25 | DRG 871 ==
LOC: SED 10:55 → SIC 13:29 → STU 07-25 19:31
PROVIDERS: ADMIT General Practice; ATTEND General Practice
PROC: 02HV33Z Insertion of Infusion Device into Superior Vena Cava, Percutaneous Approach (ICD-10-PCS; principal; 2019-07-23)
DX: A40.9 Streptococcal sepsis, unspecified (principal); G93.41 Metabolic encephalopathy; N17.0 Acute kidney failure with tubular necrosis; I50.43 Acute on chronic combined systolic (congestive) and diastolic (congestive) heart failure; I21.A1 Myocardial infarction type 2; J18.1 Lobar pneumonia, unspecified organism; I48.20 Chronic atrial fibrillation, unspecified; I13.0 Hypertensive heart and chronic kidney disease with heart failure and stage 1 through stage 4 chronic kidney disease, or unspecified chronic kidney disease; N39.0 Urinary tract infection, site not specified; E46 Unspecified protein-calorie malnutrition; I42.9 Cardiomyopathy, unspecified; E87.2 Acidosis; L03.115 Cellulitis of right lower limb; L03.116 Cellulitis of left lower limb; I25.10 Atherosclerotic heart disease of native coronary artery without angina pectoris; D63.8 Anemia in other chronic diseases classified elsewhere; R65.20 Severe sepsis without septic shock; E87.5 Hyperkalemia; E78.5 Hyperlipidemia, unspecified; E78.00 Pure hypercholesterolemia, unspecified; H40.9 Unspecified glaucoma; I73.9 Peripheral vascular disease, unspecified; H54.61 Unqualified visual loss, right eye, normal vision left eye; Z60.2 Problems related to living alone; N18.9 Chronic kidney disease, unspecified; E66.01 Morbid (severe) obesity due to excess calories; B35.3 Tinea pedis; I87.2 Venous insufficiency (chronic) (peripheral); K74.60 Unspecified cirrhosis of liver; L85.3 Xerosis cutis; N40.0 Benign prostatic hyperplasia without lower urinary tract symptoms; D69.6 Thrombocytopenia, unspecified; E86.0 Dehydration; F19.10 Other psychoactive substance abuse, uncomplicated; Z98.84 Bariatric surgery status; Z98.42 Cataract extraction status, left eye; Z95.1 Presence of aortocoronary bypass graft; Z90.79 Acquired absence of other genital organ(s); Z79.01 Long term (current) use of anticoagulants; Z68.36 Body mass index [BMI] 36.0-36.9, adult; Z79.899 Other long term (current) drug therapy
CPT/HCPCS: 36415; 36600; 70450-TC; 71045; 76700-TC; 76770; 80048; 80053; 80074; 80076; 80202-TC; 80307; 81000-TC; 82140-TC; 82803-TC; 83036; 83605; 83735-TC; 83880; 84484; 85007; 85025; 85027; 85610-TC; 85730-TC; 87040-TC; 87045-TC; 87046; 87081; 87086; 87177; 87230-TC; 89055; 93005; 93306; 94640; 96365; 96367; 96375; 99291; C1751; C9113; G0378; J0282; J0696; J1815; J1940; J2270; J2405; J2543; J2765; J3370; J3430; J3475; J7030; J7040; J7050; J7060; J7612; Q9964

== ENCOUNTER 2020-08-09 17:12 | Emergency (ER) | payer MEDICARE ==
[~2020-08-09] VITALS: Ht 185.4 cm; Wt 122.5 kg
[2020-08-09 17:12] VITALS: BP_SYST 131
[~2020-08-09 17:12] MED LIST: ATOR20TA64 PO; BRI.2% LEFT EYE; COR6.25 PO; DORZ10DR10 LEFT EYE; FURO-149 PO; HYDR-4272 PO; LISI-600 PO; NOR10 PO; TERA5CAP4 PO; WARF2.5T2 PO; XALEYE LEFT EYE
[2020-08-09 18:19] LABS: BASOPHILS % (AUTO) 0.2 % (0.0-2.0); EOSINOPHILS # (AUTO) 0.3 K/uL (0.0-0.4); EOSINOPHILS % (AUTO) 2.9 % (0.0-4.0); HEMATOCRIT 28.2 % (36-54); HEMOGLOBIN 8.9 g/dL (14.0-18.0); LYMPHOCYTES # (AUTO) 0.9 K/uL (1.0-5.5); LYMPHOCYTES % (AUTO) 7.4 % (20.5-51.5); MEAN CORPUSCULAR HEMOGLOBIN 27 pg (27-31); MEAN CORPUSCULAR HGB CONC 31 % (32-36); MEAN CORPUSCULAR VOLUME 87 fL (79.0-98.0); MONOCYTES # (AUTO) 0.7 K/uL (0.0-1.0); MONOCYTES % (AUTO) 6.4 % (1.7-9.3); NEUTROPHILS # (AUTO) 9.8 K/uL (1.8-7.7); NEUTROPHILS % (AUTO) 83.1 % (40.0-70.0); PLATELET COUNT (AUTO) 204 K/uL (130-430); RED BLOOD CELL COUNT(AUTO) 3.26 MIL/uL (4.2-6.2); RED CELL DISTRIBUTION WIDTH 18.7 % (9.0-15.0); WHITE BLOOD COUNT (AUTO) 11.8 K/uL (4.8-10.8)
[2020-08-09 18:23] LABS: ANION GAP 5 (5-15); CALCIUM 8.8 mg/dL (8.4-11.0); CHLORIDE 102 mmol/L (98-107); GLUCOSE 107 mg/dL (70-99); POTASSIUM 3.9 mmol/L (3.5-5.1); SODIUM SERUM 137 mmol/L (136-145); UREA NITROGEN, BLOOD 56 mg/dL (8-21)
[2020-08-09 18:29] LABS: ALANINE AMINOTRANSFERASE 34 U/L (12-78); ALBUMIN 2.5 g/dL (3.4-4.8); ASPARTATE AMINOTRANSFERASE 37 U/L (10-37); TOTAL BILIRUBIN 0.6 mg/dL (0.0-1.0)
[2020-08-09 18:30] LABS: INR 1.3 (0.80-1.20); PROTHROMBIN TIME 13.3 SECS (9.5-12.5)
[2020-08-09 18:33] LABS: ALCOHOL, BLOOD < 3 mg/dL (<10)
[2020-08-09 19:19] LABS: BILIRUBIN,URINE NEGATIVE (NEGATIVE); BLOOD, URINE TRACE (NEGATIVE); CLARITY/URINE CLOUDY (CLEAR); COLOR,URINE YELLOW (YELLOW); GLUCOSE,URINE NEGATIVE (NEGATIVE); KETONES,URINE NEGATIVE (NEGATIVE); LEUKOCYTE ESTERASE ,URINE 2+ (NEGATIVE); NITRITE, URINE NEGATIVE (NEGATIVE); PROTEIN URINE NEGATIVE (NEGATIVE); UROBILINOGEN,URINE 0.2 (0.2-1.0)
[2020-08-09 19:31] LABS: WBC,URINE >100 /HPF (0-3)
[2020-08-09 19:32] LABS: BACTERIA,URINE MANY /HPF (None Seen)
[2020-08-09] MEDS ORDERED: cefTRIAXone 1 GM IVPB PREMIX 50 ML IV ONE (21:00)
[2020-08-09 22:52] VITALS: BP_SYST 148
== END 2020-08-09 22:52 | disposition short-term general hospital (02) ==
LOC: SED 17:12
DX: R41.82 Altered mental status, unspecified (principal); R77.8 Other specified abnormalities of plasma proteins; I10 Essential (primary) hypertension; E78.00 Pure hypercholesterolemia, unspecified; Z86.73 Personal history of transient ischemic attack (TIA), and cerebral infarction without residual deficits; Z79.899 Other long term (current) drug therapy; Z88.5 Allergy status to narcotic agent; Z20.828 Contact with and (suspected) exposure to other viral communicable diseases
CPT/HCPCS: 36415; 70450; 71045; 76376; 80053; 81000; 83605; 84484; 85025; 85610; 85730; 87040; 87086; 87426; 93005; 96365; 99285; G0482

== ENCOUNTER 2020-08-20 12:41 | Emergency (ER) | payer MEDICARE, SELFPAY ==
[~2020-08-20] VITALS: Ht 177.8 cm; Wt 90.7 kg
[2020-08-20 14:16] VITALS: BP_SYST 148
--- NOTE | 2020-08-20 14:20 | NUR ---
PT IN [facility]
--- NOTE | 2020-08-20 14:30 | NUR ---
ER Dr. BEE at bedside examining patient. PT refusing ER treatment. PT states he wishes to go home and leave AMA.
--- NOTE | 2020-08-20 14:31 | NUR ---
PT PRESENTED TO ER C/O ALOC. PT BIB BLS FROM HOME, PER EMS SALESPERSON SHOES REPORTS PT INCREASED ALOC TODAY. A&OX4 DENIES FEELING ALTERED AND WISHES TO GO HOME.
--- NOTE | 2020-08-20 14:40 | NUR ---
DR BEE ON TELEPHONE WITH SON OF SIS [facility] [phone]
--- NOTE | 2020-08-20 15:10 | NUR ---
PATIENT DISCUSSING ER TREATMENT WITH SON.
--- NOTE | 2020-08-20 15:15 | NUR ---
Son of PT at pt side. Both PT & son decided to leave "[facility]" ER to arrange transport for PT to go home, so unable to move PT.
--- NOTE | 2020-08-20 15:40 | NUR ---
Patient does not wish to proceed with medical care recommended by DR BEE . Patient given information related to possible complications, up to and including , which could occur as a result of leaving hospital at this time. Patient verbalizes understanding of risks involved leaving against medical advice. Patient has signed AMA form.
--- NOTE | 2020-08-20 17:03 | NUR ---
AUTH # FOR [facility] IS: [id number]
--- NOTE | 2020-08-20 17:45 | NUR ---
[facility] HERE INSPECTOR OPEN DIE PT TO TRANSPORT HOME.
== END 2020-08-20 17:45 | disposition left against medical advice (07) ==
LOC: SED 12:41
DX: R41.0 Disorientation, unspecified (principal); R09.02 Hypoxemia; Z66 Do not resuscitate; I10 Essential (primary) hypertension; E78.00 Pure hypercholesterolemia, unspecified; Z79.899 Other long term (current) drug therapy; Z88.5 Allergy status to narcotic agent
CPT/HCPCS: 99283